=== PATIENT | male | born 1965 | race American Indian/Alaskan Native ===

== ENCOUNTER 2017-01-03 11:57 | Emergency (ER) | payer MEDICAID, OTHER ==
[2017-01-03 11:58] VITALS: BMI 31.9
[2017-01-03 12:04] VITALS: RESP 18
--- NOTE | 2017-01-03 12:15 | C.PDOC ---
History Of Present Illness 51M c/o diffuse worsening abdominal pain for "2 or 3 days." assoc nausea and vomiting mainly after eating or drinking. he normally drinks "one or two beers" daily but has not drank in 2 days bc of his sx. he has chronic back pain and has taken both tylenol and ibuprofen a few times over the last 3 days. also took a laxative and reports diarrhea. Time Seen by Provider: 01/03/17 12:14 Chief Complaint (Nursing): Abdominal Pain Past Medical History Vital Signs: Last Vital Signs Temp 99.4 F 01/03/17 12:31 Pulse 83 01/03/17 13:49 Resp 18 01/03/17 13:49 BP 127/70 01/03/17 13:49 Pulse Ox 97 01/03/17 13:49 Family History: States: Other Other Family History: nc - Social History Hx Tobacco Use: Yes Hx Alcohol Use: Yes Hx Substance Use: No - Immunization History Hx Tetanus Toxoid Vaccination: Yes Hx Influenza Vaccination: Yes Hx Pneumococcal Vaccination: Yes Review Of Systems Except As Marked, All Systems Reviewed And Found Negative. Constitutional: Negative for: Fever, Chills, Weakness, Malaise Cardiovascular: Negative for: Chest Pain Respiratory: Negative for: Cough, Shortness of Breath Gastrointestinal: Positive for: Nausea, Vomiting, Abdominal Pain, Diarrhea. Negative for: Melena, Hematochezia Genitourinary: Negative for: Dysuria Neurological: Negative for: Weakness, Numbness Physical Exam - Physical Exam Appears: Well, Non-toxic, No Acute Distress Skin: Warm, Dry Head: Atraumatic Eye(s): bilateral: PERRL Oral Mucosa: Moist Neck: Normal ROM Cardiovascular: Rhythm Regular Respiratory: No Decreased Breath Sounds, No Accessory Muscle Use, No Rales, No Rhonchi, No Wheezing Gastrointestinal/Abdominal: Soft, No Tenderness, No Distention, No Guarding, No Rebound Extremity: No Swelling Neurological/Psych: Oriented x3, Other (no focal deficits) ED Course And Treatment - Laboratory Results Result Diagrams: 01/03/17 13:14 01/03/17 13:14 O2 Sat by Pulse Oximetry: 99 Medical Decision Making Medical Decision Making: disc results w the pt who is feeling better. disc diet rec, plan for rx, f/u, and RTR. Disposition - Disposition Referrals: [facility] [Outside] Disposition: HOME/ ROUTINE Disposition Time: 16:31 Condition: IMPROVED Additional Instructions: Please follow up with your doctor in 1 week. Follow diet and take medication as directed. Avoid alcohol. You can also take ioij-sst-pacmcav antacids such as maalox, mylanta, or TUMS for relief of pain. Return to the ER for any worsening symptoms or for any other concerns. Prescriptions: Famotidine [Pepcid] 20 mg PO DAILY #14 tab Instructions: Peptic Ulcer (ED), Diet for Ulcers and Gastritis (ED) Forms: General Discharge Instructions - Clinical Impression Clinical Impression: Gastric ulcer
[2017-01-03] MEDS ORDERED: Sodium Chloride 0.9% 1,000 ML IV ONE (12:34)
[2017-01-03] MEDS ORDERED: Sodium Chloride 0.9% 1,000 ML ONE (12:51)
[2017-01-03] MEDS ORDERED: Morphine 4 MG/ML VIAL ONE ×2 (12:52→15:11)
[2017-01-03 13:23] LABS: BASO # 0.1 K/uL (0.0-0.2); BASO % 0.6 % (0.0-2.0); EOS # 0.1 K/uL (0.0-0.7); EOS % 0.6 % (0.0-4.0); HEMATOCRIT 51.9 % (35.0-51.0); LYMPH % 16.1 % (20.0-40.0); MEAN CORPUSCULAR HEMOGLOBIN 29.1 pg (27.0-31.0); MEAN CORPUSCULAR HGB CONC 33.4 g/dL (33.0-37.0); MEAN PLATELET VOLUME 7.1 fL (7.2-11.7); MONO # 0.8 K/uL (0.0-0.8); RED CELL DISTRIBUTION WIDTH 13.9 % (11.5-14.5); WHITE BLOOD COUNT 12.1 K/uL (4.8-10.8)
[2017-01-03 13:31] LABS: CHLORIDE 93 mmol/L (98-107); SODIUM 134 mmol/L (132-148)
[2017-01-03 13:32] LABS: POTASSIUM 3.8 mmol/L (3.6-5.2)
[2017-01-03 13:34] LABS: ALB/GLOB RATIO 1.1 (1.0-2.1); BILIRUBIN,TOTAL 0.5 mg/dL (0.2-1.3); CARBON DIOXIDE 26 mmol/L (22-30); GFR AFRICAN-AMERICAN > 60; TOTAL PROTEIN 8.9 g/dL (6.3-8.3)
[2017-01-03 13:35] LABS: ALCOHOL SERUM < 10 mg/dl (0-10); ALKALINE PHOSPHATASE 90 U/L (38-126); ALT/SGPT 32 U/L (21-72); AST/SGOT 24 U/L (17-59); BLOOD UREA NITROGEN 16 mg/dL (9-20); CALCIUM 9.7 mg/dl (8.6-10.4); GLUCOSE,RANDOM 128 mg/dL (75-110)
[2017-01-03 13:48] LABS: RBC URINE 2 /hpf (0-3); URINE BACTERIA RARE (<OCC); URINE BILIRUBIN NEGATIVE (NEGATIVE); URINE BLOOD 1+ (NEGATIVE); URINE COLOR Amber (YELLOW); URINE GLUCOSE (UA) NORMAL (Normal); URINE KETONE TRACE mg/dL (NEGATIVE); URINE LEUKOCYTE ESTERASE NEG Leu/uL (Negative); URINE PROTEIN 3+ mg/dL (NEGATIVE); URINE UROBILINOGEN NORMAL mg/dL (0.2-1.0); WBC URINE 5 /hpf (0-5)
[2017-01-03] MEDS ORDERED: Iodixanol 320 MG/ML 100 ML BOTTLE IV ONE (14:17)
--- NOTE | 2017-01-03 15:23 | CT ---
PROCEDURE: CT Abdomen and Pelvis with contrast HISTORY: abdominal pain COMPARISON: None available. TECHNIQUE: Contrast dose: 100 mL Visipaque Radiation dose: Total exam DLP = 979.19 MGy-cm. This CT exam was performed using one or more of the following dose reduction techniques: Automated exposure control, adjustment of the mA and/or kV according to patient size, and/or use of iterative reconstruction technique. FINDINGS: LOWER THORAX: Unremarkable. LIVER: Hypoattenuation of the liver compatible with hepatic steatosis. GALLBLADDER AND BILE DUCTS: Unremarkable. PANCREAS: Unremarkable. SPLEEN: Unremarkable. ADRENALS: Unremarkable. KIDNEYS AND URETERS: Right nephrectomy. No hydronephrosis. Too small to characterize left lower pole renal hypodensities, statistically likely cysts. VASCULATURE: No aortic aneurysm. BOWEL: Stomach is nondistended. Gastric wall thickening with suspected ulcer, mid portion posterior wall. Correlate clinically including with direct visualization at which time it is clinically feasible/ indicated. Lack of oral contrast limits evaluation for bowel pathology. Bowel loops appear within normal limits of caliber without evidence of obstruction. Diverticulosis without CT evidence of acute diverticulitis. APPENDIX: The appendix appears within normal limits of caliber. No secondary signs of acute appendicitis. PERITONEUM: No significant free fluid. No definite free air. LYMPH NODES: Sub cm prominent gastrohepatic and mesenteric adenopathy. No bulky adenopathy. BLADDER: Thick-walled under distended urinary bladder. REPRODUCTIVE: The prostate gland measures approximately 3.3 x 5.4 cm. BONES: Degenerative changes. Bridging osteophytes, bilateral sacroiliac joints. OTHER FINDINGS: Rectus diastases. IMPRESSION: Stomach is nondistended. Gastric wall thickening with suspected ulcer, mid portion posterior wall. Correlate clinically including with direct visualization at which time it is clinically feasible/ indicated. Sub cm prominent gastrohepatic and mesenteric adenopathy, nonspecific. Walled urinary bladder may be exaggerated by under distension. Recommend correlation with urinalysis in order to exclude possibility of cystitis. Additional incidental findings as above.
[2017-01-03] MEDS ORDERED: Aluminum Hydroxide/Magnesium Hydroxide Susp (30 mL) PO STA (16:21)
[2017-01-03] MEDS ORDERED: Aluminum Hydroxide/Magnesium Hydroxide Susp (30 mL) ONE (16:30)
[2017-01-03 16:52] VITALS: BP 150/78; PULSE 74; TEMP 98.1; O2SAT 98
== END 2017-01-03 17:01 | disposition home or self-care (01) ==
LOC: C.ER 11:57
DX: K25.9 Gastric ulcer, unspecified as acute or chronic, without hemorrhage or perforation (principal)
CPT/HCPCS: 74177; 80053; 80320; 80324; 80345; 80346; 80349; 80353; 80358; 80361; 81001; 83690; 83992; 85025; 96361; 96374; 96375; 96376; 99285; J2270; J2405; J7040; Q9967

== ENCOUNTER 2018-04-11 13:08 | Emergency (ER) | payer MEDICAID, OTHER ==
[2018-04-11 13:09] VITALS: BMI 31.9
[2018-04-11] MEDS ORDERED: Sodium Chloride 0.9% 1,000 ML IV ONE (13:41)
--- NOTE | 2018-04-11 13:41 | C.PDOC ---
History Of Present Illness 52 y/o male presents to the ED with complaints of crampy periumbilical pain for the past 4 days. Patient reports a history of gastric ulcers, but is not taking any meds. States he usually drinks two 16oz beers per day, but none in the past 2 days. Otherwise patient denies any vomiting, diarrhea, blood in the urine/ stool, fever, chills, or GI bleeding. Time Seen by Provider: 04/11/18 13:30 Chief Complaint (Nursing): Abdominal Pain History Per: Patient History/Exam Limitations: no limitations Onset/Duration Of Symptoms: Days Current Symptoms Are (Timing): Still Present Location Of Pain/Discomfort: Periumbilical Quality Of Discomfort: "Pain" Past Medical History Reviewed: Historical Data, Nursing Documentation, Vital Signs Vital Signs: Last Vital Signs Temp 98.6 F 04/11/18 17:22 Pulse 67 04/11/18 17:22 Resp 16 04/11/18 17:22 BP 130/81 04/11/18 17:22 Pulse Ox 98 04/11/18 17:22 - Medical History PMH: Denies: Chronic Kidney Disease Other Surgeries: Right kidney removal Family History: States: No Known Family Hx - Social History Hx Tobacco Use: Yes Hx Alcohol Use: Yes Hx Substance Use: No - Immunization History Hx Tetanus Toxoid Vaccination: Yes Hx Influenza Vaccination: Yes Hx Pneumococcal Vaccination: Yes Review Of Systems Except As Marked, All Systems Reviewed And Found Negative. Constitutional: Negative for: Fever, Chills Cardiovascular: Negative for: Chest Pain Respiratory: Negative for: Shortness of Breath Gastrointestinal: Positive for: Abdominal Pain. Negative for: Vomiting, Diarrhea, Constipation, Hematochezia, Hematemesis, Other (GI bleed) Neurological: Negative for: Dizziness Physical Exam - Physical Exam Appears: Non-toxic, No Acute Distress, Other (Obese male) Skin: Normal Color, Warm, Dry Head: Atraumatic, Normacephalic Eye(s): bilateral: Normal Inspection, PERRL, EOMI Oral Mucosa: Moist Neck: Normal ROM, Supple Chest: Symmetrical Cardiovascular: Rhythm Regular, No Murmur Respiratory: Normal Breath Sounds, No Accessory Muscle Use Gastrointestinal/Abdominal: Bowel Sounds (Dull to percussion on the left and right sides, tympanic in epigastrium), Soft, Tenderness (and (-) Anna sign or McBurneys point tenderness), No Guarding, No Rebound Back: Normal Inspection, No CVA Tenderness, No Vertebral Tenderness Extremity: Bilateral: Atraumatic, Normal Color And Temperature, Normal ROM Neurological/Psych: Oriented x3, Normal Speech, Normal Cranial Nerves ED Course And Treatment - Laboratory Results Result Diagrams: 04/11/18 13:57 04/11/18 13:57 Lab Interpretation: Abnormal (+ THC) O2 Sat by Pulse Oximetry: 100 (RA) Pulse Ox Interpretation: Normal - Radiology CXR: Interpreted by Me CXR Interpretation: Yes: No Acute Disease - Other Rad abd x 2 X-Ray: Interpreted by Me (normal stool/gas pattern) Reevaluation Time: 17:38 Reassessment Condition: Improved Medical Decision Making Medical Decision Making: Impression: Periumbilical pain, Hx of gastric ulcers Plan: --CMP --Lipase --CBC --UA --Obtructive series x-ray --1 L IV fluids --Maalox Plus 30 ml PO --Pepcid 20 mg IVP Labs reviewed. gastritis: no perf noted on CT ongoing alcohol use and lack of PPI contributing restart PPI and Maalox PRN Abd Lymphadenopathy ? etiology no CA noted Motrin for discomfort and opt f/u w GI Disposition Doctor Will See Patient In The: Office Counseled Patient/Family Regarding: Studies Performed, Diagnosis - Disposition Disposition: HOME/ ROUTINE Disposition Time: 17:39 Condition: GOOD Forms: [facility] (Tuvaluan) - Clinical Impression Clinical Impression: Abdominal discomfort - Scribe Statement The provider has reviewed the documentation as recorded by the Mitchell Cantor Provider Attestation: All medical record entries made by the Mitchell were at my direction and personally dictated by me. I have reviewed the chart and agree that the record accurately reflects my personal performance of the history, physical exam, medical decision making, and the department course for this patient. I have also personally directed, reviewed, and agree with the discharge instructions and disposition.
[2018-04-11] MEDS ORDERED: Alum-Mag Hydrox-Simethicone Susp (30 mL) PO STA (13:42)
[2018-04-11 14:01] LABS: BASO # 0.1 K/uL (0.0-0.2); BASO % 0.6 % (0.0-2.0); EOS % 0.4 % (0.0-4.0); HEMOGLOBIN 16.7 g/dL (12.0-18.0); LYMPH % 15.4 % (20.0-40.0); MEAN CELL VOLUME 86.2 fL (80.0-94.0); MEAN CORPUSCULAR HEMOGLOBIN 29.4 pg (27.0-31.0); MEAN CORPUSCULAR HGB CONC 34.1 g/dL (33.0-37.0); MEAN PLATELET VOLUME 7.1 fL (7.2-11.7); MONO # 0.9 K/uL (0.0-0.8); MONO % 6.8 % (0.0-10.0); NEUT # 9.8 K/uL (1.8-7.0); NEUT % 76.8 % (50.0-75.0); RBC 5.68 Mil/uL (4.40-5.90); RED CELL DISTRIBUTION WIDTH 14.1 % (11.5-14.5); WHITE BLOOD COUNT 12.7 K/uL (4.8-10.8)
[2018-04-11] MEDS ORDERED: Sodium Chloride 0.9% 1,000 ML ONE (14:02)
[2018-04-11] MEDS ORDERED: Aluminum Hydroxide/Magnesium Hydroxide Susp (30 mL) ONE (14:02)
[2018-04-11 14:15] LABS: ALB/GLOB RATIO 1.3 (1.0-2.1); ALBUMIN 4.4 g/dL (3.5-5.0); ALT/SGPT 32 U/L (21-72); AST/SGOT 26 U/L (17-59); BLOOD UREA NITROGEN 17 mg/dL (9-20); CALCIUM 9.6 mg/dl (8.6-10.4); GFR AFRICAN-AMERICAN 59; GFR NON-AFRICAN AMERICAN 49; LIPASE 71 U/L (23-300)
--- NOTE | 2018-04-11 14:55 | RAD ---
Date of service: 04/11/2018 PROCEDURE: Radiographs of the chest and abdomen (obstructive series) HISTORY: Abdominal pain COMPARISON: No prior. TECHNIQUE: AP radiograph of the chest, with upright and supine radiographs of the abdomen. FINDINGS: CHEST: Lungs: Clear. Cardiovascular: Normal size heart. No pulmonary vascular congestion. Pleura: No pleural fluid. No pneumothorax. Other findings: None. ABDOMEN AND PELVIS: Bowel: The bowel gas pattern is nonspecific. No evidence of mechanical obstruction. Free air: None. Bones: Unremarkable. Other findings: None. IMPRESSION: Clear lungs. Nonobstructive bowel-gas pattern.
[2018-04-11 16:00] LABS: URINE BILIRUBIN NEGATIVE (NEGATIVE); URINE BLOOD 1+ (NEGATIVE); URINE CLARITY Hazy (Clear); URINE COLOR Yellow (YELLOW); URINE GLUCOSE (UA) NORMAL (Normal); URINE LEUKOCYTE ESTERASE NEG Leu/uL (Negative); URINE PROTEIN 2+ mg/dL (NEGATIVE)
[2018-04-11 16:27] LABS: BARBITURATES, UR NEGATIVE (NEGATIVE); BENZODIAZEPINES, UR NEGATIVE (NEGATIVE); OPIATES, UR NEGATIVE (NEGATIVE); PHENCYCLIDINE, UR NEGATIVE (NEGATIVE)
[2018-04-11] MEDS ORDERED: Iodixanol 320 MG/ML 100 ML BOTTLE IV ONE (16:38)
[2018-04-11 17:24] VITALS: BP 130/81; PULSE 67; RESP 16; TEMP 98.6
--- NOTE | 2018-04-11 17:28 | CT ---
Date of service: 04/11/2018 PROCEDURE: CT Abdomen and Pelvis with contrast HISTORY: periumbilical pain, x 3 days, gastric ulcers COMPARISON: Comparison is made with the previous study dated 01/03/2017 TECHNIQUE: Contrast dose: 100 mL Visipaque 320. Axial and reformatted coronal and sagittal CT images of the abdomen and pelvis were obtained after IV contrast administration. Radiation dose: Total exam DLP = 1068.68 mGy-cm. This CT exam was performed using one or more of the following dose reduction techniques: Automated exposure control, adjustment of the mA and/or kV according to patient size, and/or use of iterative reconstruction technique. FINDINGS: LOWER THORAX: No evidence of acute pathology. LIVER: Heterogeneous attenuation of the liver is noted. No evidence of discrete mass. GALLBLADDER AND BILE DUCTS: No evidence of acute cholecystitis. The biliary tree is not dilated. PANCREAS: Unremarkable. No gross lesion or ductal dilatation. SPLEEN: Unremarkable. ADRENALS: Unremarkable. No mass. KIDNEYS AND URETERS: The patient is status post right nephrectomy. The left kidney is grossly unremarkable. VASCULATURE: Unremarkable. No aortic aneurysm. BOWEL: Unremarkable. No obstruction. No gross mural thickening. APPENDIX: No evidence of appendicitis. PERITONEUM: Unremarkable. No free fluid. No free air. LYMPH NODES: Again noted are mildly enlarged gastrohepatic and mesenteric lymph nodes. No evidence of significant retroperitoneal lymphadenopathy. BLADDER: Dkro-gb-svsbdtvo urinary bladder wall thickening. REPRODUCTIVE: Orpxpy-nc-ghekigjiek enlarged prostate. BONES: No acute fracture. OTHER FINDINGS: Mild to moderate diastases recti is noted. IMPRESSION: No significant interval change noted since the previous exam. Hsym-dr-mnmzxldc diastases recti. Stable gastrohepatic and mesenteric mildly enlarged lymph nodes. Enlarged prostate. Moderate circumferential urinary bladder wall thickening. Diffuse gastric wall thickening suspicious for gastritis.
[2018-04-11 17:40] VITALS: O2SAT 100
== END 2018-04-11 17:53 | disposition home or self-care (01) ==
LOC: C.ER 13:08
DX: R10.9 Unspecified abdominal pain (principal)
CPT/HCPCS: 74022; 74177; 80053; 81001; 83690; 85025; 96374; 99285; G0480; J7030; Q9967